=== PATIENT | female | born 1950 | race Caucasian/White ===

== ENCOUNTER → 2021-03-17 | Outpatient (CLI) | payer MEDICARE, OTHER ==
[~2021-03-17] MED LIST: B-12100T2 PO; CYMB1CAP5 PO; CYMB60CA4 PO; D31000TA2 PO; LEVO50TA5 PO; OXYB10TA23 PO; OXYB5TAB10 PO; PRESCAP PO; TAMO20TA8 PO; TIZA2CAP PO; VERA180C PO
== END ==
LOC: M WHC 09:18
PROVIDERS: ATTEND Nurse Practitioner Women's Health
DX: Z12.31 Encounter for screening mammogram for malignant neoplasm of breast (principal); Z85.3 Personal history of malignant neoplasm of breast; Z78.0 Asymptomatic menopausal state; Z92.21 Personal history of antineoplastic chemotherapy; Z92.3 Personal history of irradiation; Z79.810 Long term (current) use of selective estrogen receptor modulators (SERMs)

== ENCOUNTER 2021-03-25 14:55 | Emergency (ER) | payer MEDICARE, OTHER ==
[~2021-03-25] VITALS: Ht 157.5 cm; Wt 86.4 kg
[2021-03-25 20:45] VITALS: BP 129/62
== END 2021-03-25 21:02 | disposition home or self-care (01) ==
LOC: EDBD 14:55 → M ED 14:55
DX: M54.50 Low back pain, unspecified (principal); I10 Essential (primary) hypertension; E78.5 Hyperlipidemia, unspecified; F33.9 Major depressive disorder, recurrent, unspecified; G47.33 Obstructive sleep apnea (adult) (pediatric); K21.9 Gastro-esophageal reflux disease without esophagitis; K58.9 Irritable bowel syndrome, unspecified; M79.7 Fibromyalgia; Z79.899 Other long term (current) drug therapy; Z79.890 Hormone replacement therapy; Z88.5 Allergy status to narcotic agent; Z88.8 Allergy status to other drugs, medicaments and biological substances; Z87.891 Personal history of nicotine dependence
CPT/HCPCS: 36415; 74176; 80048; 80076; 81001; 85025; 93005; 99285; G0463

== ENCOUNTER → 2021-04-07 | Outpatient (CLI) | payer MEDICARE, OTHER ==
[2021-04-07 11:22] LABS: HEMOGLOBIN A1c 5.4 %
[2021-04-07 11:39] LABS: CHOLESTEROL RISK RATIO 4.446 (<5); THYROID STIMULATING HORMONE 3.9 uIU/ML (0.358-3.740); TOTAL 25(OH) VITAMIN D 44.9 NG/ML (30.0-100.0)
== END ==
LOC: M PLALAB 09:19
PROVIDERS: ATTEND Nurse Practitioner Family
DX: E78.5 Hyperlipidemia, unspecified (principal); E55.9 Vitamin D deficiency, unspecified; E03.9 Hypothyroidism, unspecified; Z79.899 Other long term (current) drug therapy

== ENCOUNTER → 2021-09-19 | Outpatient (CLI) | payer MEDICARE, OTHER ==
[~2021-09-19] MED LIST changes: -D31000TA2 PO; +VITA100093 PO
[2021-09-19 13:26] LABS: BASO % 0.5 % (0.0-1.0); EOS # 0.2 10^3/uL (0.0-0.5); EOS % 2.7 % (0.0-3.0); HEMATOCRIT 37.7 % (36.0-47.0); HEMOGLOBIN 12.2 g/dl (12.0-15.5); MEAN CORPUSCULAR HEMOGLOBIN 29.8 pg (27.0-33.0); MEAN CORPUSCULAR HGB CONC 32.4 g/dl (32.0-36.5); MONO # 0.6 10^3/uL (0.0-0.8); MONO % 9.8 % (2.0-8.0); NEUTROPHILS # 4.1 10^3/uL (1.5-8.5); NEUTROPHILS % 69.7 % (36.0-66.0); PLATELET COUNT, AUTOMATED 229 10^3/uL (150-450); WHITE BLOOD COUNT 5.9 10^3/uL (4.0-10.0)
[2021-09-19 13:42] LABS: HEMOGLOBIN A1c 5.5 %
[2021-09-19 13:59] LABS: ALBUMIN 3.3 GM/DL (3.2-5.2); ALT/SGPT 26 U/L (12-78); BILIRUBIN,TOTAL 0.2 MG/DL (0.2-1.0); BLOOD UREA NITROGEN 16 MG/DL (7-18); CALCIUM LEVEL 9.1 MG/DL (8.8-10.2); CARBON DIOXIDE LEVEL 28 MEQ/L (21-32); CHLORIDE LEVEL 110 MEQ/L (98-107); CHOLESTEROL LEVEL 126 MG/DL (<200); CREATININE FOR GFR 0.97 MG/DL (0.55-1.30); FREE T4 0.97 NG/DL (0.76-1.46); GLOMERULAR FILTRATION RATE > 60.0 (>39); GLUCOSE, FASTING 88 MG/DL (70-100); HDL CHOLESTEROL 51 MG/DL (>40); LDL CHOLESTEROL 61 MG/DL (<100); NON-HDL-C 75 MG/DL; POTASSIUM SERUM 4.1 MEQ/L (3.5-5.1); SODIUM LEVEL 144 MEQ/L (136-145); TOTAL PROTEIN 6.9 GM/DL (6.4-8.2); TRIGLYCERIDES LEVEL 72 MG/DL (<150)
[2021-09-19 14:06] LABS: TOTAL 25(OH) VITAMIN D 62.9 NG/ML (30.0-100.0)
== END ==
LOC: M PLALAB 10:54
PROVIDERS: ATTEND Nurse Practitioner Family
DX: E03.9 Hypothyroidism, unspecified (principal); I10 Essential (primary) hypertension; E78.5 Hyperlipidemia, unspecified; E55.9 Vitamin D deficiency, unspecified; Z79.899 Other long term (current) drug therapy

== ENCOUNTER → 2022-01-15 | Outpatient (REF) | payer MEDICARE, OTHER ==
[~2022-01-15] MED LIST changes: +ATOR40TA75 PO; +LAMO100T3 PO; +PROL60SO SC
== END ==
LOC: M SFHCPLAZ 16:55
PROVIDERS: ATTEND Physician Assistant
DX: R39.9 Unspecified symptoms and signs involving the genitourinary system (principal)

== ENCOUNTER → 2022-01-28 | Outpatient (CLI) | payer MEDICARE, OTHER ==
[2022-01-28 11:38] LABS: BASO % 0.3 % (0.0-1.0); EOS # 0.2 10^3/uL (0.0-0.5); EOS % 2.3 % (0.0-3.0); HEMATOCRIT 35.8 % (36.0-47.0); HEMOGLOBIN 11.1 g/dl (12.0-15.5); LYMPH # 1.2 10^3/uL (1.5-5.0); LYMPH % 18.6 % (24.0-44.0); MEAN CORPUSCULAR HEMOGLOBIN 28.5 pg (27.0-33.0); MEAN CORPUSCULAR VOLUME 91.8 fl (80.0-96.0); MONO # 0.5 10^3/uL (0.0-0.8); MONO % 7.8 % (2.0-8.0); NEUTROPHILS # 4.6 10^3/uL (1.5-8.5); NEUTROPHILS % 70.5 % (36.0-66.0); PLATELET COUNT, AUTOMATED 305 10^3/uL (150-450); WHITE BLOOD COUNT 6.6 10^3/uL (4.0-10.0)
[2022-01-28 12:35] LABS: ALKALINE PHOSPHATASE 72 U/L (45-117); ALT/SGPT 34 U/L (12-78); AST/SGOT 14 U/L (7-37); BILIRUBIN,TOTAL 0.3 MG/DL (0.2-1.0); BLOOD UREA NITROGEN 14 MG/DL (7-18); CALCIUM LEVEL 8.4 MG/DL (8.8-10.2); CARBON DIOXIDE LEVEL 27 MEQ/L (21-32); CHLORIDE LEVEL 108 MEQ/L (98-107); FREE T4 1.03 NG/DL (0.76-1.46); GLOMERULAR FILTRATION RATE > 60.0 (>39); GLUCOSE, FASTING 90 MG/DL (70-100); SODIUM LEVEL 141 MEQ/L (136-145); TOTAL PROTEIN 6.6 GM/DL (6.4-8.2)
== END ==
LOC: M PLALAB 09:11
PROVIDERS: ATTEND Nurse Practitioner Family
DX: R42 Dizziness and giddiness (principal); E03.9 Hypothyroidism, unspecified

== ENCOUNTER → 2022-02-03 | Outpatient (CLI) | payer MEDICARE, OTHER | LOC: M LABSMTC 09:53 | PROVIDERS: ATTEND Anesthesiology | DX: Z01.812 Encounter for preprocedural laboratory examination (principal); Z11.52 Encounter for screening for COVID-19 ==

== ENCOUNTER 2022-02-06 09:02 | Day surgery (SDC) | payer MEDICARE, OTHER ==
[~2022-02-06] VITALS: Ht 157.5 cm; Wt 92.4 kg
[~2022-02-06 09:02] MED LIST changes: +NS 1,000 ML IV ONE
[2022-02-06] MEDS ORDERED: LIDOCAINE 2% 100MG/5ML SDV (FOR ANES.) As Ordered ONE (11:39)
[2022-02-06] MEDS ORDERED: propofoL 200 MG/20 ML VIAL As Ordered ONE (11:39)
[2022-02-06 13:20] VITALS: BP 170/77
== END 2022-02-06 13:08 | disposition home or self-care (01) ==
LOC: M OPP 09:02
PROVIDERS: ATTEND Internal Medicine Gastroenterology
DX: Z12.11 Encounter for screening for malignant neoplasm of colon (principal); Z86.010 Personal history of colon polyps; Z80.0 Family history of malignant neoplasm of digestive organs; D12.6 Benign neoplasm of colon, unspecified; K57.30 Diverticulosis of large intestine without perforation or abscess without bleeding; K64.4 Residual hemorrhoidal skin tags; K64.8 Other hemorrhoids; K29.70 Gastritis, unspecified, without bleeding; Z98.84 Bariatric surgery status; Z79.02 Long term (current) use of antithrombotics/antiplatelets; Z79.899 Other long term (current) drug therapy; Z85.3 Personal history of malignant neoplasm of breast; Z88.5 Allergy status to narcotic agent; Z88.8 Allergy status to other drugs, medicaments and biological substances; Z92.21 Personal history of antineoplastic chemotherapy; Z92.3 Personal history of irradiation; Z87.440 Personal history of urinary (tract) infections; E03.9 Hypothyroidism, unspecified; M81.0 Age-related osteoporosis without current pathological fracture; F41.9 Anxiety disorder, unspecified; F31.9 Bipolar disorder, unspecified; Z80.1 Family history of malignant neoplasm of trachea, bronchus and lung; Z80.8 Family history of malignant neoplasm of other organs or systems; Z87.891 Personal history of nicotine dependence

== ENCOUNTER → 2022-03-02 | Outpatient (CLI) | payer MEDICARE, OTHER ==
[~2022-03-02] MED LIST changes: -NS 1,000 ML IV ONE
== END ==
LOC: M RAD 11:25
PROVIDERS: ATTEND Nurse Practitioner Family
DX: R42 Dizziness and giddiness (principal); I25.84 Coronary atherosclerosis due to calcified coronary lesion

== ENCOUNTER → 2022-03-20 | Outpatient (REF) | payer MEDICARE, OTHER ==
[2022-03-20 15:37] LABS: APPEARANCE, URINE MANUAL HAZY (CLEAR); COLOR, URINE MANUAL LT YELLOW (YELLOW)
[2022-03-20 15:39] LABS: BILIRUBIN, URINE MANUAL NEGATIVE (NEGATIVE); BLOOD URINE MANUAL POSITIVE (NEGATIVE); GLUCOSE, URINE (UA) MANUAL NEGATIVE (NEGATIVE); KETONE, URINE MANUAL NEGATIVE (NEGATIVE); LEUKOCYTE ESTERASE, URINE MAN POSITIVE (NEGATIVE); NITRITE, URINE MANUAL POSITIVE (NEGATIVE); PROTEIN, URINE MANUAL TRACE mg/dL (NEGATIVE); SPECIFIC GRAVITY,URINE MANUAL 1.015 (1.002-1.035); UROBILINOGEN, URINE MANUAL NORMAL (NORMAL)
[2022-03-20 15:57] LABS: BACTERIA, URINE LARGE AMOUNT; HYALINE CAST, URINE NONE SEEN /lpf (0-1); SQUAMOUS EPITHELIAL CELL URINE SMALL AMOUNT /hpf (SMALL AMT); WBC, URINE TNTC /hpf (0-3)
== END ==
LOC: M SFHCPLAZ 15:13
PROVIDERS: ATTEND Physician Assistant
DX: R35.0 Frequency of micturition (principal)

== ENCOUNTER → 2022-04-08 | Outpatient (CLI) | payer MEDICARE, OTHER ==
[~2022-04-08] MED LIST changes: +OMEP40CA5
== END ==
LOC: M WHC 10:01
PROVIDERS: ATTEND Nurse Practitioner Women's Health
DX: Z12.31 Encounter for screening mammogram for malignant neoplasm of breast (principal); Z85.3 Personal history of malignant neoplasm of breast

== ENCOUNTER → 2022-04-08 | Outpatient (CLI) | payer MEDICARE, OTHER ==
[~2022-04-08] MED LIST changes: -OMEP40CA5
[2022-04-08 13:13] LABS: BASO % 0.6 % (0.0-1.0); EOS # 0.1 10^3/uL (0.0-0.5); EOS % 1.9 % (0.0-3.0); HEMATOCRIT 37.2 % (36.0-47.0); HEMOGLOBIN 11.8 g/dl (12.0-15.5); LYMPH # 1.2 10^3/uL (1.5-5.0); LYMPH % 18.7 % (24.0-44.0); MEAN CORPUSCULAR HEMOGLOBIN 28.9 pg (27.0-33.0); MEAN CORPUSCULAR HGB CONC 31.7 g/dl (32.0-36.5); MONO # 0.5 10^3/uL (0.0-0.8); MONO % 7.8 % (2.0-8.0); NEUTROPHILS # 4.5 10^3/uL (1.5-8.5); NEUTROPHILS % 70.7 % (36.0-66.0); PLATELET COUNT, AUTOMATED 239 10^3/uL (150-450); RED BLOOD COUNT 4.09 10^6/uL (4.00-5.40); WHITE BLOOD COUNT 6.3 10^3/uL (4.0-10.0)
[2022-04-08 13:43] LABS: TOTAL IRON BINDING CAPACITY 320 UG/DL (250-425)
[2022-04-08 13:45] LABS: BLOOD UREA NITROGEN 16 MG/DL (9-23); CALCIUM LEVEL 9.1 MG/DL (8.3-10.6); CARBON DIOXIDE LEVEL 29 MMOL/L (20-31); CHLORIDE LEVEL 107 MMOL/L (98-107); CREATININE FOR GFR 0.94 MG/DL (0.55-1.30); FOLATE 5.8 NG/ML (>5.4); GLOMERULAR FILTRATION RATE > 60.0 (>39); GLUCOSE, FASTING 98 MG/DL (74-106); IRON (FE) 61 UG/DL (50-170); PERCENT SATURATION 19.1 % (13.2-45.0); POTASSIUM SERUM 4.2 MMOL/L (3.5-5.1); SODIUM LEVEL 142 MMOL/L (136-145); VITAMIN B12 LEVEL 552 PG/ML (211-911)
[2022-04-08 13:46] LABS: FERRITIN 23.1 NG/ML (7.3-270.7)
== END ==
LOC: M PLALAB 10:39
PROVIDERS: ATTEND Internal Medicine Gastroenterology
DX: R10.13 Epigastric pain (principal)

== ENCOUNTER → 2022-06-01 | Outpatient (CLI) | payer MEDICARE, OTHER ==
[~2022-06-01] MED LIST changes: +E-Z-GAS II EFFERVESCENT PACKET (SODIUM BICARB./CITRIC ACID/SIMETHICONE) As Ordered ONE; +E-Z-HD 98% w/w 340GM SUSP BTL As Ordered ONE; +E-Z-PAQUE 96% w/w SUSP 176GM BTL As Ordered ONE; +OMEP40CA5
== END ==
LOC: M RAD 10:17
PROVIDERS: ATTEND Internal Medicine Gastroenterology
DX: R10.13 Epigastric pain (principal); Z98.84 Bariatric surgery status; K57.50 Diverticulosis of both small and large intestine without perforation or abscess without bleeding; K22.89 Other specified disease of esophagus

== ENCOUNTER → 2022-10-28 | Outpatient (CLI) | payer MEDICARE, OTHER ==
[~2022-10-28] MED LIST changes: -E-Z-GAS II EFFERVESCENT PACKET (SODIUM BICARB./CITRIC ACID/SIMETHICONE) As Ordered ONE; -E-Z-HD 98% w/w 340GM SUSP BTL As Ordered ONE; -E-Z-PAQUE 96% w/w SUSP 176GM BTL As Ordered ONE
[2022-10-28 14:02] LABS: THYROID STIMULATING HORMONE 3.959 uIU/ML (0.55-4.78)
[2022-10-28 14:03] LABS: TOTAL 25(OH) VITAMIN D 39.8 NG/ML (20.0-100.0)
[2022-10-28 14:04] LABS: CHOLESTEROL RISK RATIO 2.69 (<5); HDL CHOLESTEROL 56.3 MG/DL (>40); LDL CHOLESTEROL 69.5 MG/DL (<100); NON-HDL-C 95.7 MG/DL
[2022-10-28 14:05] LABS: FREE T4 1.08 NG/DL (0.89-1.76)
[2022-10-28 14:11] LABS: HEMOGLOBIN A1c 5.9 % (4.0-6.0)
== END ==
LOC: M PLALAB 10:45
PROVIDERS: ATTEND Nurse Practitioner Family
DX: E78.5 Hyperlipidemia, unspecified (principal); E55.9 Vitamin D deficiency, unspecified; E03.9 Hypothyroidism, unspecified; Z79.899 Other long term (current) drug therapy

== ENCOUNTER → 2023-04-09 | Outpatient (CLI) | payer MEDICARE, OTHER ==
[~2023-04-09] MED LIST changes: -OXYB5TAB10 PO; +OXYB5TAB11 PO
== END ==
LOC: M WHC 09:34
PROVIDERS: ATTEND Nurse Practitioner Women's Health
DX: Z12.31 Encounter for screening mammogram for malignant neoplasm of breast (principal); Z85.3 Personal history of malignant neoplasm of breast

== ENCOUNTER → 2023-05-04 | Outpatient (CLI) | payer MEDICARE, OTHER ==
[2023-05-04 16:00] LABS: BASO % 0.5 % (0.0-1.0); EOS # 0.3 10^3/uL (0.0-0.5); EOS % 3.3 % (0.0-3.0); HEMATOCRIT 42.9 % (36.0-47.0); HEMOGLOBIN 13.3 g/dl (12.0-15.5); LYMPH % 24.6 % (24.0-44.0); MEAN CORPUSCULAR HEMOGLOBIN 28.4 pg (27.0-33.0); MEAN CORPUSCULAR VOLUME 91.5 fl (80.0-96.0); MONO # 0.8 10^3/uL (0.0-0.8); MONO % 9.8 % (2.0-8.0); NEUTROPHILS # 5.1 10^3/uL (1.5-8.5); NEUTROPHILS % 61.6 % (36.0-66.0); PLATELET COUNT, AUTOMATED 351 10^3/uL (150-450); RED BLOOD COUNT 4.69 10^6/uL (4.00-5.40); WHITE BLOOD COUNT 8.2 10^3/uL (4.0-10.0)
[2023-05-04 16:29] LABS: FREE T4 0.97 NG/DL (0.89-1.76); THYROID STIMULATING HORMONE 3.161 uIU/ML (0.55-4.78)
[2023-05-04 16:30] LABS: ALBUMIN 3.5 G/DL (3.2-5.2); ALKALINE PHOSPHATASE 113 U/L (46-116); ALT/SGPT 26 U/L (7.0-40); AST/SGOT 16 U/L (<34); BILIRUBIN,TOTAL 0.2 MG/DL (0.3-1.2); BLOOD UREA NITROGEN 18 MG/DL (9-23); CALCIUM LEVEL 9.6 MG/DL (8.3-10.6); CARBON DIOXIDE LEVEL 30 MMOL/L (20-31); CHLORIDE LEVEL 108 MMOL/L (98-107); CHOLESTEROL LEVEL 160 MG/DL (<200); CHOLESTEROL RISK RATIO 2.57 (<5); CREATININE FOR GFR 0.88 MG/DL (0.55-1.30); GLOMERULAR FILTRATION RATE > 60.0 (>39); GLUCOSE, FASTING 106 MG/DL (74-106); HDL CHOLESTEROL 62.2 MG/DL (>40); MAGNESIUM LEVEL 2.2 MG/DL (1.8-2.4); NON-HDL-C 97.8 MG/DL; SODIUM LEVEL 140 MMOL/L (136-145); TOTAL PROTEIN 7.4 G/DL (5.7-8.2); TRIGLYCERIDES LEVEL 119 MG/DL (<150)
[2023-05-04 16:32] LABS: TOTAL 25(OH) VITAMIN D 37.3 NG/ML (20.0-100.0)
[2023-05-04 16:33] LABS: HEMOGLOBIN A1c 5.6 % (4.0-6.0)
== END ==
LOC: M PLAIMG 12:21
PROVIDERS: ATTEND Nurse Practitioner Family
DX: R05.3 Chronic cough (principal); E03.9 Hypothyroidism, unspecified; I10 Essential (primary) hypertension; E78.5 Hyperlipidemia, unspecified; Z79.899 Other long term (current) drug therapy

== ENCOUNTER → 2023-05-14 | Outpatient (CLI) | payer MEDICARE, OTHER ==
[~2023-05-14] MED LIST changes: -OXYB5TAB11 PO; +OXYB5TAB14 PO
== END ==
LOC: M WHC 11:29
PROVIDERS: ATTEND Nurse Practitioner Family
DX: R42 Dizziness and giddiness (principal); I65.23 Occlusion and stenosis of bilateral carotid arteries

== ENCOUNTER → 2023-11-12 | Outpatient (CLI) | payer MEDICARE, OTHER ==
[2023-11-12 13:16] LABS: ALBUMIN 3.2 G/DL (3.2-5.2); ALKALINE PHOSPHATASE 123 U/L (46-116); ALT/SGPT 28 U/L (7.0-40); AST/SGOT 17 U/L (<34); BILIRUBIN,TOTAL 0.4 MG/DL (0.3-1.2); BLOOD UREA NITROGEN 16 MG/DL (9-23); CARBON DIOXIDE LEVEL 28 MMOL/L (20-31); CHLORIDE LEVEL 110 MMOL/L (98-107); CHOLESTEROL LEVEL 132 MG/DL (<200); CHOLESTEROL RISK RATIO 2.46 (<5); CREATININE FOR GFR 0.79 MG/DL (0.55-1.30); GLOMERULAR FILTRATION RATE > 60.0 (>39); GLUCOSE, FASTING 100 MG/DL (74-106); HDL CHOLESTEROL 53.6 MG/DL (>40); NON-HDL-C 78.4 MG/DL; POTASSIUM SERUM 4.3 MMOL/L (3.5-5.1); SODIUM LEVEL 141 MMOL/L (136-145); TOTAL PROTEIN 6.9 G/DL (5.7-8.2); TRIGLYCERIDES LEVEL 97 MG/DL (<150)
[2023-11-12 13:19] LABS: FREE T4 1.12 NG/DL (0.89-1.76)
[2023-11-12 13:20] LABS: THYROID STIMULATING HORMONE 2.036 uIU/ML (0.55-4.78)
[2023-11-12 13:21] LABS: TOTAL 25(OH) VITAMIN D 45.3 NG/ML (20.0-100.0)
[2023-11-12 13:22] LABS: BASO % 0.6 % (0.0-1.0); EOS # 0.2 10^3/uL (0.0-0.5); EOS % 2.8 % (0.0-3.0); HEMATOCRIT 36.6 % (36.0-47.0); HEMOGLOBIN 11.6 g/dl (12.0-15.5); LYMPH # 1.5 10^3/uL (1.5-5.0); LYMPH % 22.4 % (24.0-44.0); MEAN CORPUSCULAR HGB CONC 31.7 g/dl (32.0-36.5); MEAN CORPUSCULAR VOLUME 88.4 fl (80.0-96.0); MONO # 0.6 10^3/uL (0.0-0.8); MONO % 9.4 % (2.0-8.0); NEUTROPHILS # 4.4 10^3/uL (1.5-8.5); NEUTROPHILS % 64.5 % (36.0-66.0); PLATELET COUNT, AUTOMATED 255 10^3/uL (150-450); RED BLOOD COUNT 4.14 10^6/uL (4.00-5.40); WHITE BLOOD COUNT 6.8 10^3/uL (4.0-10.0)
[2023-11-12 13:33] LABS: HEMOGLOBIN A1c 5.5 % (4.0-6.0)
== END ==
LOC: M PLALAB 10:25
PROVIDERS: ATTEND Nurse Practitioner Family
DX: E78.5 Hyperlipidemia, unspecified (principal); I10 Essential (primary) hypertension; E03.9 Hypothyroidism, unspecified; E55.9 Vitamin D deficiency, unspecified; R73.01 Impaired fasting glucose

== ENCOUNTER → 2024-01-26 | Outpatient (REF) | payer MEDICARE, OTHER | LOC: M LAB REF 08:24 | PROVIDERS: ATTEND Surgery | DX: D03.61 Melanoma in situ of right upper limb, including shoulder (principal); D04.39 Carcinoma in situ of skin of other parts of face ==

== ENCOUNTER → 2024-04-10 | Outpatient (CLI) | payer MEDICARE, OTHER | LOC: M WHC 11:56 | PROVIDERS: ATTEND Nurse Practitioner Family | DX: R92.2 Inconclusive mammogram (principal) ==

== ENCOUNTER → 2024-04-12 | Outpatient (CLI) | payer MEDICARE, OTHER | LOC: M PLALAB 11:04 | PROVIDERS: ATTEND Physician Assistant Medical | DX: R06.02 Shortness of breath (principal); J06.9 Acute upper respiratory infection, unspecified ==

== ENCOUNTER → 2024-04-25 | Outpatient (REF) | payer MEDICARE, OTHER | LOC: M SFHCDERM 17:17 | PROVIDERS: ATTEND Dermatology | DX: L82.1 Other seborrheic keratosis (principal) ==

== ENCOUNTER → 2024-04-26 | Outpatient (CLI) | payer MEDICARE, OTHER | LOC: M WHC 13:04 | PROVIDERS: ATTEND Nurse Practitioner Family | DX: R92.8 Other abnormal and inconclusive findings on diagnostic imaging of breast (principal) | CPT/HCPCS: 77065; G0279 ==

== ENCOUNTER → 2024-05-02 | Outpatient (CLI) | payer MEDICARE, OTHER ==
[2024-05-02 14:06] LABS: BASO % 0.5 % (0.0-1.0); EOS # 0.2 10^3/uL (0.0-0.5); EOS % 2.3 % (0.0-3.0); HEMATOCRIT 38.5 % (36.0-47.0); HEMOGLOBIN 12.1 g/dl (12.0-15.5); LYMPH # 1.4 10^3/uL (1.5-5.0); LYMPH % 18.8 % (24.0-44.0); MEAN CORPUSCULAR HGB CONC 31.4 g/dl (32.0-36.5); MEAN CORPUSCULAR VOLUME 89.1 fl (80.0-96.0); MONO # 0.6 10^3/uL (0.0-0.8); MONO % 8.6 % (2.0-8.0); NEUTROPHILS # 5.1 10^3/uL (1.5-8.5); NEUTROPHILS % 69.4 % (36.0-66.0); PLATELET COUNT, AUTOMATED 295 10^3/uL (150-450); RED BLOOD COUNT 4.32 10^6/uL (4.00-5.40); WHITE BLOOD COUNT 7.3 10^3/uL (4.0-10.0)
[2024-05-02 14:27] LABS: HEMOGLOBIN A1c 5.5 % (4.0-6.0)
[2024-05-02 14:45] LABS: FREE T4 1.12 NG/DL (0.89-1.76)
[2024-05-02 14:46] LABS: THYROID STIMULATING HORMONE 1.641 uIU/ML (0.55-4.78)
[2024-05-02 14:49] LABS: ALBUMIN 3.1 G/DL (3.2-5.2); ALKALINE PHOSPHATASE 83 U/L (35-104); ALT/SGPT 20 U/L (7.0-40); AST/SGOT 14 U/L (<34); BILIRUBIN,TOTAL 0.3 MG/DL (0.3-1.2); BLOOD UREA NITROGEN 21 MG/DL (9-23); CALCIUM LEVEL 9.3 MG/DL (8.3-10.6); CARBON DIOXIDE LEVEL 27 MMOL/L (20-31); CHLORIDE LEVEL 109 MMOL/L (98-107); CHOLESTEROL LEVEL 152 MG/DL (<200); CHOLESTEROL RISK RATIO 2.93 (<5); CREATININE FOR GFR 0.88 MG/DL (0.55-1.30); GLOMERULAR FILTRATION RATE > 60.0 (>39); GLUCOSE, FASTING 100 MG/DL (74-106); HDL CHOLESTEROL 51.8 MG/DL (>40); LDL CHOLESTEROL 81.6 MG/DL (<100); NON-HDL-C 100.2 MG/DL; POTASSIUM SERUM 4.7 MMOL/L (3.5-5.1); SODIUM LEVEL 144 MMOL/L (136-145); TOTAL PROTEIN 7.2 G/DL (5.7-8.2); TRIGLYCERIDES LEVEL 93 MG/DL (<150)
== END ==
LOC: M PLALAB 11:28
PROVIDERS: ATTEND Nurse Practitioner Family
DX: E03.9 Hypothyroidism, unspecified (principal); R73.01 Impaired fasting glucose; I10 Essential (primary) hypertension; E78.5 Hyperlipidemia, unspecified; E55.9 Vitamin D deficiency, unspecified

== ENCOUNTER → 2024-05-08 | Outpatient (CLI) | payer MEDICARE, OTHER | LOC: M EKG 09:51 | PROVIDERS: ATTEND Registered Nurse | DX: R00.2 Palpitations (principal) ==

== ENCOUNTER → 2024-05-31 | Outpatient (CLI) | payer MEDICARE, OTHER ==
[~2024-05-31] MED LIST changes: +DENO60SY2 SC; -PROL60SO SC
== END ==
LOC: M SLEEP 20:00
PROVIDERS: ATTEND Physician Assistant
DX: G47.33 Obstructive sleep apnea (adult) (pediatric) (principal); G47.61 Periodic limb movement disorder

== ENCOUNTER → 2024-07-11 | Outpatient (CLI) | payer MEDICARE, OTHER | LOC: M PLAIMG 10:32 | PROVIDERS: ATTEND Registered Nurse | DX: R06.02 Shortness of breath (principal); R94.31 Abnormal electrocardiogram [ECG] [EKG] ==

== ENCOUNTER → 2024-11-07 | Outpatient (CLI) | payer MEDICARE, OTHER ==
[2024-11-07 15:40] LABS: BASO # 0.0 10^3/uL (0.0-0.2); BASO % 0.7 % (0.0-1.0); EOS # 0.1 10^3/uL (0.0-0.5); EOS % 1.8 % (0.0-3.0); LYMPH # 1.3 10^3/uL (1.5-5.0); LYMPH % 21.8 % (24.0-44.0); MONO # 0.6 10^3/uL (0.0-0.8); MONO % 10.0 % (2.0-8.0); NEUTROPHILS # 3.9 10^3/uL (1.5-8.5); NEUTROPHILS % 65.4 % (36.0-66.0); PLATELET COUNT, AUTOMATED 278 10^3/uL (150-450)
[2024-11-07 16:13] LABS: ALT/SGPT 35 U/L (7.0-40); AST/SGOT 27 U/L (<34); CALCIUM LEVEL 9.2 MG/DL (8.3-10.6); CARBON DIOXIDE LEVEL 27 MMOL/L (20-31); CHLORIDE LEVEL 111 MMOL/L (98-107); CHOLESTEROL LEVEL 237 MG/DL (<200); CHOLESTEROL RISK RATIO 4.03 (<5); CREATININE FOR GFR 0.89 MG/DL (0.55-1.30); GLOMERULAR FILTRATION RATE 67.6 (>39); LDL CHOLESTEROL 157.4 MG/DL (<100); MAGNESIUM LEVEL 1.9 MG/DL (1.8-2.4); NON-HDL-C 178.2 MG/DL; POTASSIUM SERUM 5.0 MMOL/L (3.5-5.1); SODIUM LEVEL 144 MMOL/L (136-145); TRIGLYCERIDES LEVEL 104 MG/DL (<150)
[2024-11-07 16:14] LABS: FREE T4 1.16 NG/DL (0.89-1.76)
[2024-11-07 16:15] LABS: PROGESTERONE < 0.21 NG/ML
[2024-11-07 16:37] LABS: TESTOSTERONE 10 NG/DL (14-76)
== END ==
LOC: M PLALAB 12:00
PROVIDERS: ATTEND Nurse Practitioner Family
DX: E03.9 Hypothyroidism, unspecified (principal); I10 Essential (primary) hypertension; E55.9 Vitamin D deficiency, unspecified; E78.5 Hyperlipidemia, unspecified; R23.2 Flushing

== ENCOUNTER → 2024-11-24 | Outpatient (CLI) | payer MEDICARE, OTHER | LOC: M PLAIMG 11:30 | PROVIDERS: ATTEND Nurse Practitioner Family | DX: R06.02 Shortness of breath (principal) ==

== ENCOUNTER → 2025-01-10 | Outpatient (CLI) | payer MEDICARE, OTHER ==
[2025-01-10 15:26] LABS: BASO # 0.0 10^3/uL (0.0-0.2); BASO % 0.3 % (0.0-1.0); EOS # 0.1 10^3/uL (0.0-0.5); EOS % 0.9 % (0.0-3.0); LYMPH # 1.5 10^3/uL (1.5-5.0); LYMPH % 10.8 % (24.0-44.0); MONO # 1.1 10^3/uL (0.0-0.8); MONO % 7.7 % (2.0-8.0); NEUTROPHILS # 11.2 10^3/uL (1.5-8.5); NEUTROPHILS % 79.4 % (36.0-66.0); PLATELET COUNT, AUTOMATED 285 10^3/uL (150-450)
[2025-01-10 16:42] LABS: ALT/SGPT 35.0 U/L (7.0-40); AST/SGOT 18.0 U/L (<34); C REACTIVE PROTEIN QUANTITATIV 17.25 MG/DL (<1.0); CALCIUM LEVEL 8.4 MG/DL (8.3-10.6); CARBON DIOXIDE LEVEL 27.0 MMOL/L (20-31); CHLORIDE LEVEL 103.0 MMOL/L (98-107); CREATININE FOR GFR 0.83 MG/DL (0.55-1.30); GLOMERULAR FILTRATION RATE 73.0 (>39); POTASSIUM SERUM 4.3 MMOL/L (3.5-5.1); SODIUM LEVEL 141.0 MMOL/L (136-145)
== END ==
LOC: M PLAIMG 14:02
PROVIDERS: ATTEND Physician Assistant Medical
DX: R05.8 Other specified cough (principal); R06.02 Shortness of breath; J45.901 Unspecified asthma with (acute) exacerbation; R91.8 Other nonspecific abnormal finding of lung field

== ENCOUNTER → 2025-01-11 | Outpatient (REF) | payer MEDICARE, OTHER | LOC: M SFHCPLAZ 14:57 | PROVIDERS: ATTEND Physician Assistant Medical | DX: R05.8 Other specified cough (principal) ==

== ENCOUNTER → 2025-02-21 | Outpatient (CLI) | payer MEDICARE, OTHER | LOC: M PLAIMG 10:40 | PROVIDERS: ATTEND Physician Assistant | DX: R06.02 Shortness of breath (principal); R05.3 Chronic cough; Z87.891 Personal history of nicotine dependence; R91.8 Other nonspecific abnormal finding of lung field ==

== ENCOUNTER → 2025-03-08 | Outpatient (CLI) | payer MEDICARE, OTHER ==
[~2025-03-08] MED LIST changes: +METHACHOLINE KIT (6 VIAL.NEB PREMIX) INH ONE
== END ==
LOC: M CARPUL 09:51
PROVIDERS: ATTEND Physician Assistant
DX: R06.02 Shortness of breath (principal)
CPT/HCPCS: 94070; 95070; J7674